=== PATIENT | male | born 1980 | race Hispanic/Latino ===

== ENCOUNTER 2017-05-12 19:32 | Emergency (ER) | payer SELFPAY ==
[2017-05-12 19:37] VITALS: BP 161/87; PULSE 118; RESP 18; O2SAT 100
--- NOTE | 2017-05-12 21:12 | ED.REPORT ---
HPI-Psychiatric Illness Date of Service May 12, 2017 ED Provider: Silvestre Molina MD A 37 year old male with a history of schizophrenia, paranoia and methamphetamine abuse is brought to the ED by police for a mental health evaluation. Police found the pt extremely paranoid, claiming that people were following him and attempting to kill him. He states that "all the people everywhere" are trying to hurt him. The pt used methamphetamines two days ago. He recently moved from [place], where he was taking Abilify, Fluoxetine and Xanax, but lost these medications when he moved and has not replaced them. Nursing Notes Stated Complaint: SCHIZOPHRENIA,MENTAL HEALTH CHECK Chief Complaint: Psychiatric Complaint Nursing Notes Reviewed: Yes General Time Seen by MD: 21:05 Chief Complaint Paranoid Hx Obtained From: Patient, Police Arrived By: Police Symptom Duration: Since onset Recent Healthcare: No recent hospitalization Similar Sx Previous: Yes Risk-Psychiatric Illness Suicide Risk Stratification Suicide Risk Factors - Adult: : Substance abuse RF Statements: Risk factors reviewed Past Medical History Past Medical History schizophrenia paranoia Past Surgical History none reported Smoking History Unknown if Ever Smoker Social History recently moved from [place] Drug Use: Meth Ambulatory Status Independent Review of Systems Review of Systems Note: paranoia Respiratory: Denies: Non-productive cough, Shortness of breath Cardiovascular: Denies: Chest pain GI: Denies: Abdominal pain Skin: Denies Rash Complete sys rev & neg: except as marked. Physical Exam Initial Vital Signs Vital Signs (First) Date Time Temp Pulse Resp B/P Pulse Ox O2 Delivery O2 Flow Rate FiO2 05/12/17 19:37 37.0 118 18 161/87 100 05/12/17 23:46 Room Air Initial VS: Reviewed General/Constitutional: Awake, Alert, No acute distress Neurologic: Oriented X3, Speech NL, No motor deficits, No sensory deficits Psychiatric: Affect NL Abnormal Mood/Affect: Positive: Anxious paranoid Head / Eyes: Atraumatic, Normocephalic, EOMI ENT: Atraumatic, Airway patent, Mucous membranes moist Respiratory / Chest: Atraumatic, No respiratory distress Cardiovascular: Heart rate NL Abdomen: Atraumatic Skin: Atraumatic, Color NL Neck: Atraumatic, Full range of motion Back: Atraumatic, Full range of motion Upper Extremity / MS: Atraumatic, Full range of motion Lower Extremity / Pelvis / MS: Atraumatic, Full range of motion Interpretation & Diagnostics Lab Results Interpretation Test 05/12/17 19:50 Hold Urine Received (Received) Re-Eval/Medical Decision Med Decision/Clinical Course 37-year-old with background psychosis intermittent methamphetamine abuse presents with increasing paranoia. He has been positive tonight. He recognizes that is not helpful in treating his underlying psychosis. He was given Abilify and Ativan and is been calm her uncomfortable overnight. Await metabolism of his methamphetamine to reassess in the morning and decide whether he needs additional sites of Atrovent evaluation, or can be discharged with renewal of his Abilify. Signed out at [address] Noah Molina Counseled Regarding: Diagnosis, Lab results Discharge & Departure Shift Change Sign-Out Patient Care Transferred: Yes Discussed Complaint(s): Yes Laboratory Evaluation: Lab evaluation discussed Response to Therapy: Improved Impression: Primary Impression: Psychosis Additional Impressions: Substance abuse Methamphetamine abuse Discharge Condition All VS Reviewed: Yes Condition: Stable Referrals: [facility] Care Transferred to: Dr. Landry Care Transferred at: 06:00 Dandre Attestation Portions of this note were transcribed by Erin Jack. I, Dr. Molina personally performed the history, physical exam and medical decision-making; I reviewed and confirmed the accuracy of the information in the transcribed note. Signed by: Dandre Pinto, 05/13/2017 and 05:18. copies to: [facility] Silvestre Molina MD May 12, 2017 21:12 ERIN JACK May 12, 2017 21:37
[2017-05-12] MEDS ORDERED: LORazepam 1 mg Tablet PO ONE (21:20)
[2017-05-12 23:46] VITALS: BP 120/68; PULSE 52; RESP 12; O2SAT 100
[2017-05-13 06:13] VITALS: BP 122/58; PULSE 68; RESP 16; O2SAT 100
[2017-05-13] MEDS ORDERED: ARIP15TA2 PO (11:37)
[2017-05-13 11:58] VITALS: BP_SYST 120; BP_SYST 122; BP_DIAS 58; BP_DIAS 72; PULSE 68; PULSE 78; RESP 16; O2SAT 100; O2SAT 99
== END 2017-05-13 11:59 | disposition home or self-care (01) ==
LOC: SED 19:32
DX: F15.10 Other stimulant abuse, uncomplicated (principal); F20.0 Paranoid schizophrenia; Z59.0 Homelessness